=== PATIENT | male | born 1965 | race Asian ===

== ENCOUNTER 2024-08-14 15:17 | Inpatient (IN) | payer OTHER, SELFPAY ==
[2024-08-14] VITALS (8 sets, daily range): BP systolic 132–150; BP diastolic 90–99; BMI 24.8
--- NOTE | 2024-08-14 08:41 | ED.GENMED ---
History of Present Illness
General
Chief Complaint: Abdominal Pain
Source: patient
Time Seen by Provider: 08/14/24 08:31
History of Present Illness
History of Present Illness:
59-year-old male presents to the emergency room complaining of upper abdominal pain. Pain has been present since yesterday evening. He rates the pain a 10 out of 10. He describes it as a tightness or squeezing type sensation in the epigastrium.
Patient last ate at around 830 last night. He denies alcohol or drug use. He has had a previous appendectomy but no other intra-abdominal operations. He does have a history of significant gastritis for which he takes Protonix. The pain he is
experiencing today does not feel similar to his gastritis. He denies any associated diaphoresis or shortness of breath. He denies any melena or bloody stool.
Phy Exam
Physical Exam
Physical Exam:
General: Awake, Alert, Oriented X3. No acute distress.
Vitals: unremarkable
Head: Atraumatic
Eyes: Pupils equal, EOMI
Throat: Airway intact, no exudates
Neck: Trachea midline
Lungs: Clear and equal b/l
Heart: Regular rate, no murmurs
Abd: Soft, moderate tenderness palpation epigastric, No pulsatile mass
Neuro: Nonfocal
Skin: Warm, dry, no rash
Extremities: pulses equal b/l, no edema
Course
Orders/Labs/Results
Orders:
Orders
08/14/24 08:18
EKG [Electrocardiogram (*1)] Urgent
Reason for Study: Abdominal Pain
08/14/24 08:19
EKG- Treatment ONCE
08/14/24 08:41
0.9% Sodium Chloride 1000 ml [Nss] 1,000 ml IV BOLUS
Ketorolac [Toradol] 15 mg IV NOW STA
Ondansetron Injectable [Zofran] 4 mg IV NOW STA
08/14/24 08:42
US Abdomen Complete/Upper Urgent
Comment:
Reason For Exam: upper abd pain
08/14/24 08:51
Complete Blood Count/With Diff Urgent
Comprehensive Metabolic Panel Urgent
Lipase Urgent
08/14/24 10:43
CT Abd/pelvis W Iv Cont Urgent
Comment:
Reason For Exam: upper abdominal pain
08/14/24 10:47
HYDROmorphone [Dilaudid] 1 mg IV NOW STA
08/14/24 12:33
Mag Hydrox/Al Hydrox/Simeth [Maalox] 30 ml Phenobarb/Hyoscy/Atropine/Scop [] 10 ml Viscous Lidocaine 2% [Xylocaine Viscous Cup] 10 ml PO NOW
Pantoprazole [Protonix IV] 80 mg IV NOW STA
08/14/24 12:41
Mag Hydrox/Al Hydrox/Simeth [Maalox] 30 ml .ROUTE .STK-MED ONE
Phenobarb/Hyoscy/Atropine/Scop [] 10 ml .ROUTE .STK-MED ONE
Sterile Water [Sterile Water For Injection] 20 ml .ROUTE .STK-MED ONE
Viscous Lidocaine 2% [Xylocaine Viscous Cup] 15 ml .ROUTE .STK-MED ONE
08/14/24 14:26
Lactic Acid Urgent
08/14/24 14:49
Ketorolac [Toradol] 15 mg IV NOW STA
08/14/24 15:03
Admit/Transfer Patient As Directed
Co-Sign Provider:
Level of Care: Inpatient admission
Assign to:: Telemetry
Physician / Group: Otoniel Rodriguez
Diagnosis: Severe Abd Pain unclear etiology suspect bowel obstruction vs ischemia
Reason for Telemetry: Arrhythmia
Date to Stop Telemetry: 08/17/24
Time to Stop Telemetry: 11:00
Reason for Hospitalization: Severe Abd Pain unclear etiology suspect bowel obstruction vs ischemia
Expected length of stay greater than two midnights?: Yes
ELOS- Estimated Length of Stay in days: 2
I certify the patient meets the requirements for IP care: Yes
PRN Pain Medication Management As Directed
May give lesser potent ordered pain med per pt: Yes
preference::
Protocol:: Medication orders for pain may be administered in a
manner that supports deferring to patient preference
when the pt is:
- Requesting an ordered lesser potent pain medication.
Least to most potent pain medications are defined
as: acetaminophen < NSAID < tramadol < opioids
(morphine, oxycodone, hydromorphone).
- Requesting a lesser dose of the same medication IF
ORDERED.
- Requesting a less intrusive route of administration
if both routes are prescribed by the provider (PO <
IV).
08/14/24 15:05
Code Status As Directed
Resuscitation Status: Full Code
08/14/24 15:16
Consult Surgery [SURGICAL CONSULT] Routine
Consulting Provider: Bro Gray
Was physician already notified: Yes
Reason for consult: severe abd pain unclear etiology absent bowel sounds
08/14/24 16:00
Lactated Ringers [Lr] 1,000 ml IV 100 mls/hr
08/17/24 11:00
DC Protocol for Telemetry ONCE
Abnormal Lab Results
08/14/24
08:51
WBC 12.7 H 10^3/uL
(4.8-10.8)
Absolute Neuts (auto) 11.4 H 10^3/uL
(1.4-6.5)
Absolute Lymphs (auto) 0.9 L 10^3/uL
(1.2-3.4)
Neutrophils % 89.9 H %
(42.2-75.2)
Lymphocytes % 6.7 L %
(20.5-51.1)
Glucose 159 H mg/dl
(70-99)
08/14/24 08:51
08/14/24 08:51
Vital Signs
Initial and Last Documented VS:
Initial Vital Signs
Temp Pulse Resp BP Pulse Ox
98.5 F 84 20 146/95 97
08/14/24 08:17 08/14/24 08:17 08/14/24 08:17 08/14/24 08:17 08/14/24 08:17
Last Documented Vital Signs
Temp Pulse Resp BP Pulse Ox
98.5 F 100 26 149/96 94
08/14/24 08:17 08/14/24 13:00 08/14/24 13:00 08/14/24 13:00 08/14/24 13:00
MDM/Problems Addressed
Differential Diagnosis Includes:
Pancreatitis, cholecystitis, choledocholithiasis, peptic or duodenal ulcer
MDM/Problems Addressed:
Patient presents with significant epigastric pain. Ultrasound was obtained initially which does not show any clear reason for the patient's abdominal pain. Patient did not have relief with Toradol or a dose of Dilaudid. CT scan ordered which
shows perhaps some sludge in the gallbladder but no obvious area of acute inflammation. Patient treated with a GI cocktail and IV Protonix. No relief of pain. Additional dose of Dilaudid administered. Patient will be admitted for further
evaluation and treatment.
*Radiology
Radiology exam reviewed: radiology read reviewed
*Pulse Oximetry
SaO2: 97
Oxygen Mode of Delivery: Room air
Patient hypoxic: no
*EKG
Interpreted by ED Provider?: Yes
Heart Rate: 80
Rate: normal
Rhythm: sinus
[place]: normal axis
Interval: normal interval
QRS Pattern: normal QRS
Ischemia: no ischemia
*Insurance Actuary Interpretation
Rate: normal
Interpretation: normal
Rhythm: sinus
*Critical Care Note
Total Time (30-74mins, 75-104mins- exclusive of procedures): Not Applicable
ED Attending Note
-
Portions of this chart may have been created with voice recognition software.� Occasional wrong word or��sound alike� substitutions may have occurred due to the inherent limitations of voice recognition software.
Discharge Plan
Departure
Patient Disposition: Admit
Date of Disposition: 08/14/24
Time of Disposition: 13:32
Admit to: Med/Surg
Presentation/result/management discussed w/ accepting MD/DO: Hospitalist
Condition: Fair
Discharge Problem:
Acute epigastric pain
Interventions
Interventions:
*Risk Screen - Suicide Last Done: 08/14/24 08:17
*General Assessment Last Done: 08/14/24 09:03
*Neglect/Abuse Screening Last Done: 08/14/24 08:17
*ED- Fall Risk Assessment Last Done: 08/14/24 09:03
*ED COVID-19 Vaccine History Last Done: 08/14/24 09:03
LH-Sugvxj-Wgezddqkgd Assessment Last Done: 08/14/24 09:03
[2024-08-14] MEDS: NSS 1000 IV (08:52)
[2024-08-14] MEDS: ZOFRAN 4 MG IV (08:52)
[2024-08-14] MEDS: TORADOL 15 MG IV ×2 (08:53→15:56)
[2024-08-14 09:10] LABS: Hematocrit 42.3 % (39.0-52.0); Hemoglobin 14.9 g/dL (13.0-18.0); Mean Corp Hgb Conc. 35.2 g/dL (33.0-37.0); Mean Corpuscular Volume 84.1 fL (80.0-94.0); Nucleated Red Blood Cells % 0 % (-); Platelet Count 261 10^3/uL (130-400); Red Cell Dist. Width 12.6 % (11.5-14.5)
[2024-08-14 09:43] LABS: ALT (SGPT) 43 U/L (0-50); AST (SGOT) 30 U/L (17-59); Albumin 4.8 g/dl (3.5-5.0); Alkaline Phosphatase 87 U/L (38-126); Blood Urea Nitrogen 14 mg/dl (9-20); Calcium 9.3 mg/dl (8.4-10.2); Carbon Dioxide 24 mmol/L (22-30); Chloride 106 mmol/L (98-107); Glucose 159 mg/dl (70-99); Lipase 113 U/L (23-300); Potassium 4.2 mmol/L (3.5-5.1); Sodium 139 mmol/L (135-145); Total Protein 7.7 g/dl (6.3-8.2); eGFR > 60.00
[2024-08-14] MEDS: DILAUDID 1 MG IV ×2 (11:01→21:25)
[2024-08-14] MEDS: PROTONIX IV 80 MG IV (12:44)
[2024-08-14] MEDS: MAALOX 50 PO (12:44)
--- NOTE | 2024-08-14 13:33 | HPS.HSE ---
Family Physician
-
Family Physician: Jose Alfredo Vargas MD
Chief Complaint
-
Severe Abd pain
History of Present Illness
59M 1st language Syriac semi-fluent Cook Islander hx HTN GERD HLD appendectomy here with severe Abd pain started last night after dinner. 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 Last Bowel movement this morning reportedly
normal, with associate nausea vomiting non-bloody, has not passed gas since. Imaging CT US abd and labs largely unremarkable, mild leukocytosis 12.7, lactic acid pending. Abd is distended no bowel sounds present. Epigastric tenderness but no
rebound tenderness or guarding noted. Patient noted a prior incident with similar pain a month ago but the episode was self limited, lasting a few minutes only. Denies fever chills coughing sneezing constipation. Patient was in his usual state of
health prior to onset of symptoms.
Medical History
Past Medical History
Past Medical History: Reports Other (as above)
Past Surgical History: Reports Other (as above)
Social History
Tobacco: Non-smoker
Alcohol: None
Drug: None
Personal:
Living: With Family
Family History
Family History: Not pertinent (reviewed)
Allergies / Home Medications
Allergies reflects when Allergies were last updated in [facility].
Home Medications with original date entered in [facility]
Allergy/Medication List:
Allergies
Allergy/AdvReac Type Severity Reaction Status Date / Time
No Known Allergies Allergy Unverified 08/14/24 08:16
Home Medications
[id number]-[id number] 400 unit tablet (Beano) 400 unit PO DAILYPRN PRN gerd 08/14/24
amlodipine 5 mg-benazepril 10 mg capsule 1 cap PO DAILY 08/14/24
pantoprazole 40 mg tablet,delayed release 40 mg PO DAILY 08/14/24
rosuvastatin 40 mg tablet 40 mg PO QPM 08/14/24
Review of Systems
-
A 12 point ROS was completed and negative except as noted: Yes
Constitutional: Reports Other (as below)
Physical Exam
Vital Signs
Vital Signs
Temp Pulse Resp BP Pulse Ox
98.5 F 83 29 147/98 98
08/14/24 08:17 08/14/24 09:00 08/14/24 09:00 08/14/24 09:00 08/14/24 09:00
Physical Exam
General: Other (as below)
Laboratory Results
-
08/14/24 08:51
08/14/24 08:51
Laboratory Results
Total Bilirubin 0.7 mg/dl (0.2-1.3) 08/14/24 08:51
AST 30 U/L (17-59) 08/14/24 08:51
ALT 43 U/L (0-50) 08/14/24 08:51
Alkaline Phosphatase 87 U/L (38-126) 08/14/24 08:51
Lipase 113 U/L (23-300) 08/14/24 08:51
Impression/Plan
-
ROS
General: Denies fever chills night sweats unexpected weight loss
Neuro: Denies seizure shaking loss of consciousness dizziness vertigo
Psych: denies depression hallucinations confusion manic episodes
Endocrine: Denies polyuria polydipsia polyphagia heat/cold intolerance
HEENT: Denies blindness visual disturbances epistaxis
Pulmonary: denies coughing hemoptysis sneezing sob dyspnea on exertion
Cardiovascular: denies chest pain palpitations leg swelling
Hematology: denies signs symptoms of anemia easy bruising/bleeding
Gastrointestinal: reports nausea vomiting epigastric pain/tenderness
Genito-Urinary: denies retention incontinence dysuria
Musculoskeletal: denies joint pain weakness
Dermatology: denies rash laceration bruising
Physical Exam
General: No pallor, cyanosis, or jaundice.
HEENT: Throat clear. PERRLA Normocephalic atraumatic
NECK: Supple. No JVD Carotid Bruits
RESPIRATORY: Lungs clear to auscultation. No crackles wheezes stridor
CVS: S1, S2 normal. RRR. No murmur, rub or gallop.
ABDOMEN: Distended, epigastric tenderness, no rebound tenderness, absent bowel sounds
EXTREMITIES: No peripheral cyanosis or edema.
PARA PROFESSIONAL: AOx3. conversant coherent
IMPRESSION:
59M 1st language Syriac semi-fluent [place] Islander hx HTN GERD HLD appendectomy here with severe Abd pain started last night after dinner. 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 Last Bowel movement this morning reportedly
normal, with associate nausea vomiting non-bloody, has not passed gas since. Imaging CT US abd and labs largely unremarkable, neg lipase, mild leukocytosis 12.7, lactic acid pending. Abd is distended no bowel sounds present. Epigastric tenderness
but no rebound tenderness or guarding noted. Patient noted a prior incident with similar pain a month ago but the episode was self limited, lasting a few minutes only. Denies fever chills coughing sneezing constipation. Patient was in his usual
state of health prior to onset of symptoms.
PLAN:
#Severe Abd Pain unclear Etiology
#Hx Gastritis/GERD
#Hx appendectomy
Tele admit
bowel rest, NPO except meds
IVF
pain control prn Toradol moderate pain Dilaudid Severe pain
check Lactic Acid
Surgery eval requested
IV PPI BID
#HTN
cont Amlodipine ACEI w/ holding parameters
Hydralazine prn
#HLD
hold statin for now
follow up AM lipid panel
DVT ppx SCD
Full Code
I spent a total of 75 minutes with the patient or on the floor. More than 50% of this time involved counseling and coordination of care.
--- NOTE | 2024-08-14 15:04 | CM ---
Patient seen in ED with physician and microelectronics technician on phone. Patient stated that he lives with family and his physician is Dr. Vargas. Patient his home is a 2 story home and he has no DME. Patient uses [facility] [address] in [place]. Patient does not
speak much arabic and microelectronics technician was helpful to communicate. CM will continue to follow for discharge planning needs.
Plan;home with family; watch for VN needs.
[2024-08-14] MEDS: LR 1000 IV (15:56)
--- NOTE | 2024-08-14 17:08 | CON.GS ---
Consultation
-
Date/Time Consultation Performed: 08/14/2024 3:30 PM
Requesting Provider: Isaac
Reason for Consultation: Abdominal pain
Medical History
-
Chief Complaint: Epigastric abdominal pain
History of Present Illness:
Patient is a 59-year-old male with a past medical history only notable for hypertension, hypercholesterolemia and previous diagnosis of gastritis.
He was in his usual baseline state of health until approximately 24 hours ago when he began developing the acute onset of epigastric abdominal pain after dinner. He had nausea and dry heaves but no significant contents of vomiting. His pain
persisted until this a.m. prompting emergency department evaluation. He had an episode like this in the past but before it was self-limited and rather promptly resolved. This is also more severe. Bowels have been moving regularly without
constipation, diarrhea, melena or hematochezia. He continues with rather persistent epigastric pain.
Past Medical History
Past Medical History: Other (Hypertension, GERD/gastritis, hyperlipidemia)
Past Surgical History: Appendectomy
Social History
Tobacco: Non-Smoker
Alcohol: None
Living: With Family
Family History
Family History: Reviewed & Noncontributory
Allergies / Home Medications
Allergy/AdvReac Type Severity Reaction Status Date / Time
No Known Allergies Allergy Unverified 08/14/24 08:16
�Medication �Instructions �Recorded �Confirmed �Type
ivkcd-w-acoqdrxrthjbq 400 unit 400 unit PO DAILYPRN PRN gerd 08/14/24 08/14/24 History
tablet (Beano)
amlodipine 5 mg-benazepril 10 mg 1 cap PO DAILY 08/14/24 08/14/24 History
capsule
pantoprazole 40 mg tablet,delayed 40 mg PO DAILY 08/14/24 08/14/24 History
release
rosuvastatin 40 mg tablet 40 mg PO QPM 08/14/24 08/14/24 History
Review of Systems
-
History Source: Patient
All other systems: Negative unless noted
A 10 point review of systems was completed, and was negative except as per HPI.
Physical Exam
Vital Signs
Temp Pulse Resp BP Pulse Ox
100.3 F 110 36 149/96 94
08/14/24 17:02 08/14/24 16:00 08/14/24 16:00 08/14/24 13:00 08/14/24 13:00
08/13/24 08/14/24 08/15/24
06:59 06:59 06:59
Actual Weight 84.2 kg
Lab Results
08/14/24 08:51
08/14/24 08:51
WBC 12.7 10^3/uL (4.8-10.8) H 08/14/24 08:51
Hgb 14.9 g/dL (13.0-18.0) 08/14/24 08:51
Hct 42.3 % (39.0-52.0) 08/14/24 08:51
Plt Count 261 10^3/uL (130-400) 08/14/24 08:51
Abs Immat Gran (auto) 0.0 10^3/uL (0-0.05) 08/14/24 08:51
Neutrophils % 89.9 % (42.2-75.2) H 08/14/24 08:51
Physical Exam
General: Well Developed, Well Nourished and Other (Acutely ill and uncomfortable appearing. Participatory for history taking. Appears a stated age.)
HEENT: Normocephalic, Anicteric and Moist Mucous Membranes
Respiratory: Non Labored Respirations
Cardiac: Regular Rhythm (Sinus tachycardia)
GI: Soft, Non Distended, Tender (Tenderness palpation epigastrium, slight guarding on deep palpation. No rebound or rigidity. No percussion tenderness. No appreciated hernias or masses. No localizing right upper quadrant pain on tenderness.
Negative Dodd sign.) and Distended
Skin: Warm
Neuro: AO x 3
Data Reviewed
-
CT Scan: Image Personally Visualized and interpreted, Report Reviewed by me, Discussed with Physician and Discussed with Patient
Ultrasound: Image Personally Visualized and interpreted, Report Reviewed by me, Discussed with Physician and Discussed with Patient
Assessment / Plan
-
Assessment: 59-year-old male with the acute onset of severe epigastric abdominal pain of uncertain etiology; possible gastritis/duodenitis/PUD.
CT imaging is fairly unremarkable. No small bowel or colonic thickening. No free fluid. No pneumatosis, no free air. No signs of bowel obstruction. No evidence of internal hernia or closed-loop obstruction. Gallbladder is modestly distended
but this could just be from a fasting state. There is no definitive pericholecystic inflammatory changes or wall thickening. The antrum and pyloric region do appear a bit thickened within limits of CT imaging. No extraluminal air or free fluid
around the duodenal bulb/pylorus. No extraluminal air in the region as well.
Abdominal ultrasound imaging is also rather nonspecific. No gallstones. Biliary sludge. No wall thickening or pericholecystic edema. Negative sonographic Dodd's.
Labs notable for leukocytosis of 12.7 with neutrophil shift but no bandemia. Chemistry panel is unremarkable including no evidence of metabolic acidosis, lactic acid normal liver function profile testing normal as well as lipase.
Plan: Uncertain etiology to the patient's acute epigastric abdominal pain but no radiographic signs suggestive of an acute surgical abdomen (hollow visceral perforation, ischemia, infectious process, internal hernia or volvulus, etc.)
Continue with supportive care for presumptive initial diagnosis of severe gastritis/duodenitis including
N.p.o.
Aggressive IV fluid hydration
PPI twice daily IV
Analgesics and antiemetics as needed
No role for NG tube at this point as there is no significant gastric distention nor signs of bowel obstruction.
Will follow, further recommendations pending clinical course.
[2024-08-14] MEDS: NSS (PRESERVATIVE FREE) 10 ML IV (19:56)
[2024-08-14] MEDS: PROTONIX IV 40 MG IV (19:56)
[2024-08-14] MEDS: APRESOLINE 5 MG IV (20:19)
[2024-08-14] MEDS: TYLENOL 650 MG PO (20:19)
[2024-08-15] VITALS (14 sets, daily range): BP systolic 20–134; BP diastolic 77–94
[2024-08-15] MEDS: TORADOL 15 MG IV ×2 (00:14→06:21)
[2024-08-15] MEDS: LR 1000 IV ×2 (02:26→21:15)
--- NOTE | 2024-08-15 07:43 | W.PN.GS2 ---
Today's Communication / Plan
-
Reviewed plan with attending.
Assessment / Plan
-
59yoM PMH HTN, HLD here with abdominal pain of unknown etiology concerning for gastritis with a climbing WBC and thickened gastric wall on CT. No risk factors concerning for pancreatitis. Differential still includes gastritis, PUD, biliary etiology.
Plan
Supportive. PPI. No NSAIDs. IV fluids
Pain management. Tylenol. Dilaudid PRN
Consider GI consult for scope
HIDA scan to rule out biliary etiology.
Subjective Data
-
Date of Service: August 15, 2024
59yoM PMH HTN, HLD here for abdominal pain. Pt reports continued epigastric pain that is controlled with current pain regimen. Denies vomiting since yesterday morning. No BM since yesterday. Denies prior surgeries, alcohol, or NSAID use.
Objective Data
-
Intake and Output
08/14/24 08/15/24 08/16/24
06:59 06:59 06:59
Other:
Number of approximated MODERATE 2
amounts of urine
Vital Signs
Temp Pulse Resp BP Pulse Ox
98.8 F 96 18 117/78 94
08/15/24 03:35 08/15/24 03:35 08/15/24 03:35 08/15/24 03:35 08/15/24 03:35
Calcium 9.3 mg/dl (8.4-10.2) 08/14/24 08:51
Total Bilirubin 0.7 mg/dl (0.2-1.3) 08/14/24 08:51
AST 30 U/L (17-59) 08/14/24 08:51
ALT 43 U/L (0-50) 08/14/24 08:51
Alkaline Phosphatase 87 U/L (38-126) 08/14/24 08:51
Total Protein 7.7 g/dl (6.3-8.2) 08/14/24 08:51
Albumin 4.8 g/dl (3.5-5.0) 08/14/24 08:51
Physical Exam
-
General: Well Developed, Well Nourished, comfortable appearing.
HEENT: Normocephalic, Anicteric and Moist Mucous Membranes
Respiratory: Non Labored Respirations
Cardiac: Regular Rate and Rhythm
GI: Soft, Mildly Distended, Tenderness palpation epigastrium, No rebound or rigidity. No appreciated hernias or masses. No localizing right upper quadrant pain on tenderness. Negative Dodd sign
Skin: Warm
Neuro: AO x 3
Patient has a reece catheter: No
Patient has a central line: No
[2024-08-15 07:50] LABS: Hematocrit 43.2 % (39.0-52.0); Hemoglobin 14.8 g/dL (13.0-18.0); Mean Corp Hgb Conc. 34.3 g/dL (33.0-37.0); Mean Corpuscular Volume 85.4 fL (80.0-94.0); Platelet Count 233 10^3/uL (130-400); Red Cell Dist. Width 13.1 % (11.5-14.5)
[2024-08-15 08:23] LABS: Blood Urea Nitrogen 15 mg/dl (9-20); Calcium 8.5 mg/dl (8.4-10.2); Carbon Dioxide 26 mmol/L (22-30); Chloride 105 mmol/L (98-107); Estimated Creatinine Clearance 99 ml/min; Glucose 109 mg/dl (70-99); HDL Cholesterol 63 mg/dl; LDL Cholesterol, Calculated 46 mg/dl; Potassium 3.9 mmol/L (3.5-5.1); Sodium 139 mmol/L (135-145); Very Low Density Lipoprotein 12 mg/dl (0-30); eGFR > 60.00
[2024-08-15] MEDS: NSS (PRESERVATIVE FREE) 10 ML IV (08:28)
[2024-08-15] MEDS: PROTONIX IV 40 MG IV (08:28)
--- NOTE | 2024-08-15 10:05 | W.PN.HOSP.TC ---
Today's Communication/Plan
-
see a/p
Assessment / Plan
Assessment / Plan
Physical Exam
General: No pallor, cyanosis, or jaundice.
HEENT: Throat clear. PERRLA Normocephalic atraumatic
NECK: Supple. No JVD Carotid Bruits
RESPIRATORY: Lungs clear to auscultation. No crackles wheezes stridor
CVS: S1, S2 normal. RRR. No murmur, rub or gallop.
ABDOMEN: Distended, epigastric tenderness, no rebound tenderness, absent bowel sounds
EXTREMITIES: No peripheral cyanosis or edema.
DEHYDRATION PLANT OPERATOR: AOx3. conversant coherent
IMPRESSION:
59M 1st language Polish semi-fluent Malay hx HTN GERD HLD appendectomy here with severe Abd pain started last night after dinner. History obtained with [employer] line Polish spanish medical interpreter. Last Bowel movement this morning reportedly
normal, with associate nausea vomiting non-bloody, has not passed gas since. Imaging CT US abd and labs largely unremarkable, neg lipase, mild leukocytosis 12.7, lactic acid pending. Abd is distended no bowel sounds present. Epigastric tenderness
but no rebound tenderness or guarding noted. Patient noted a prior incident with similar pain a month ago but the episode was self limited, lasting a few minutes only. Denies fever chills coughing sneezing constipation. Patient was in his usual
state of health prior to onset of symptoms.
PLAN:
#Severe Abd Pain 2/2 acute cholecystitis
#Sepsis (Fever Leukocytosis) 2/2 acute cholecystitis
#Hx Gastritis/GERD
#Hx appendectomy
Tele admit
HIDA scan positive for acute cholecystitis cystic duct obstruction
Diet as per surgery
IVF
pain control prn Dilaudid
Lactic Acid consistently wnl
GI eval appreciated
Surgery eval appreciated For OR today Cholecystectomy 08/15
IV PPI daily
Zosyn
Follow blood culture
#HTN
Hold Amlodipine ACEI for now, consistent normotension, consider resuming if BP elevates
Hydralazine prn
#HLD
hold statin for now
Lipid panel appreciated wnl
DVT ppx SCD
Full Code
I spent a total of 50 minutes with the patient or on the floor. More than 50% of this time involved counseling and coordination of care.
Anticipated Discharge: 24 - 48 hours
Subjective/Interval History
-
Date of Service: August 15, 2024
Seen and examined at bedside in no acute distress sitting up comfortably in bed. Reports improvement in pain, requesting to eat. Pain continues to remain present when he moves. Noted fever overnight since resolved. No bowel movements since
admission but passing gas. Denies nausea. Family ( Shashi daughter Marylin son Awais) at bedside providing Polish translation.
Objective Data
-
Labs:
Laboratory Results
08/15/24
06:15
WBC 21.3 H
Hgb 14.8
Hct 43.2
Plt Count 233
Sodium 139
Potassium 3.9
Chloride 105
Carbon Dioxide 26
BUN 15
Creatinine 0.8
Glucose 109 H
Calcium 8.5
Vital Signs:
Vital Signs
Temp Pulse Resp BP Pulse Ox
98.8 F 94 16 120/82 94
08/15/24 07:15 08/15/24 07:15 08/15/24 07:15 08/15/24 07:15 08/15/24 07:15
--- NOTE | 2024-08-15 11:57 | CON.GI ---
Addendum entered and electronically signed by Beau Addison MD 08/15/24 13:59:
Patient seen and examined, agree with nurse practitioner note. The patient is a 59-year-old male with past medical history as noted who presents with abdominal pain and fever. He had pain in the epigastrium, without radiation, starting about an
hour after eating, which was severe, with associated fever. On admission he has significant leukocytosis and still with temperature. Ultrasound and CAT scan were mostly unremarkable though did suggest possible sludge or small stones in the
gallbladder. He had 1 other episode similar to this about 2 years ago was diagnosed with gastritis. On exam he still has significant epigastric tenderness, though no rebound. LFTs are normal, no ducts were dilated on imaging.
1. Epigastric pain: With fever and leukocytosis, with pain starting about an hour after eating, most consistent with cholecystitis despite ultrasound and CAT scan findings. Other GI etiologies seem less likely in the absence of vomiting, diarrhea
and otherwise negative CAT scan. At this point he has an HIDA scan, we will await those results. Surgery is following. Will await blood cultures and continue to trend labs.
Original Note:
Consultation
-
Date/Time Consultation Requested: 08/15/2024
Date/Time Consultation Performed: 08/15/2024
Medical History
Chief Complaint / HPI
Chief Complaint: Abdominal pain
History of Present Illness:
Patient is a 59-year-old male with past medical history of hyperlipidemia, hypertension and GERD who presented to the emergency with complaint of abdominal pain. According to the patient he was in his usual state of health yesterday till he had a
large meal yesterday, he ate it in the afternoon and by the evening he had severe abdominal pain that he rates 10/10 intensity, progressive, diffuse mainly in the upper quadrants, nonradiating without any associated nausea or vomiting. He denies
any fever, chills, diarrhea, constipation.His bowel movements are regular and his last bowel movement was yesterday morning.
He had a similar episode about 2 years ago and at that time he was diagnosed with gastritis at that time and treated in [place]. He he feels that that episode was much milder than this episode. He currently feels well but is sore in his epigastric
region and right and left upper quadrants which he believes is due to intense cramping that he was experiencing yesterday.
Past Medical History
Past Medical History: GERD, HTN and Hypercholesterolemia
Past Surgical History: Appendectomy
Social History
Tobacco: Non-Smoker
Alcohol: None
Drug: None
Living: With Family
Family History
Family History: Reviewed & Not Pertinent
Allergies / Home Medications
Allergy/AdvReac Type Severity Reaction Status Date / Time
No Known Allergies Allergy Unverified 08/14/24 08:16
�Medication �Instructions �Recorded
pvzli-p-xxjvselfhvokj 400 unit 400 unit PO DAILYPRN PRN gerd 08/14/24
tablet (Beano)
amlodipine 5 mg-benazepril 10 mg 1 cap PO DAILY 08/14/24
capsule
pantoprazole 40 mg tablet,delayed 40 mg PO DAILY 08/14/24
release
rosuvastatin 40 mg tablet 40 mg PO QPM 08/14/24
Review of Systems
-
All other systems: A 12 pt ROS was Negative except as stated above in HPI
Vital Signs
Temp Pulse Resp BP Pulse Ox
99.2 F 104 18 129/88 92
08/15/24 11:15 08/15/24 11:15 08/15/24 11:15 08/15/24 11:15 08/15/24 11:15
Physical Exam
Exam
General: Well Developed and No Apparent Distress
HEENT: Normocephalic, Anicteric and Moist Mucous Membranes
Respiratory: Clear; Negative Wheezes, Rales or Rhonchi
Cardiac: S1/S2 and Regular Rhythm
GI: Soft, Normal Bowel Sounds and Tender (in epigastric region)
Musculoskeletal: No Clubbing, No Cyanosis and No Edema
Neuro: Awake and Nonfocal/Grossly Intact
Hematologic/Lymphatic: No Lymphadenopathy
Psych: Calm
Results
WBC 21.3 10^3/uL (4.8-10.8) H 08/15/24 06:15
Hgb 14.8 g/dL (13.0-18.0) 08/15/24 06:15
Hct 43.2 % (39.0-52.0) 08/15/24 06:15
MCV 85.4 fL (80.0-94.0) 08/15/24 06:15
Plt Count 233 10^3/uL (130-400) 08/15/24 06:15
Absolute Neuts (auto) 11.4 10^3/uL (1.4-6.5) H 08/14/24 08:51
Sodium 139 mmol/L (135-145) 08/15/24 06:15
Potassium 3.9 mmol/L (3.5-5.1) 08/15/24 06:15
Chloride 105 mmol/L (98-107) 08/15/24 06:15
Carbon Dioxide 26 mmol/L (22-30) 08/15/24 06:15
BUN 15 mg/dl (9-20) 08/15/24 06:15
Creatinine 0.8 mg/dL (0.7-1.3) 08/15/24 06:15
Calcium 8.5 mg/dl (8.4-10.2) 08/15/24 06:15
Total Bilirubin 0.7 mg/dl (0.2-1.3) 08/14/24 08:51
AST 30 U/L (17-59) 08/14/24 08:51
ALT 43 U/L (0-50) 08/14/24 08:51
Alkaline Phosphatase 87 U/L (38-126) 08/14/24 08:51
Lipase 113 U/L (23-300) 08/14/24 08:51
Diagnostic Image Results:
Abdominal ultrasound 08/14/24
IMPRESSION:
Fatty infiltration of liver.
No gallstones or bile duct dilatation.
Ct A/p 08/14/24
IMPRESSION:
No acute inflammatory process within the abdomen or pelvis.
Minor diverticulosis. No evidence of acute diverticulitis. No bowel obstruction.
No obstructive uropathy.
Assessment / Plan
-
Impression
59-year-old male, admitted with acute severe abdominal pain associated with nausea vomiting, fever, unclear etiology, possible gastritis/duodenitis. Abdominal imaging unremarkable. GI consulted for recommendations
Assessment/plan
Leukocytosis
Reports fever, with a Tmax of 101.5 yesterday evening
EKG shows no acute ischemic changes
Mild fatty liver, minor diverticulosis
Abdominal ultrasound :Gallbladder: No gallstones identified. Mild biliary sludge noted. No gallbladder wall thickening or pericholecystic fluid. Negative sonographic Dodd sign.
Common bile duct: Normal, [address]-Gallbladder: Normally distended. No gallbladder wall thickening or pericholecystic fluid. Near the gallbladder neck, small density measuring approximately 5 mm (image 31 series 201), though not reproduced on delayed imaging. Uncertain
etiology. Possibly mobile small calculus or sludge..
Tachycardia
History of GERD, gastritis-on PPIs at home
As per the daughter, had colonoscopy/endoscopy by Brandon shrestha-Caleb?
Plan
Based on my assessment, acute cholecystitis most appropriate
No clear evidence of gallstones on ultrasound/CT of abdomen
Possibility of sludge/gallstones on CT
HIDA scan
N.p.o.
Continue IV fluids
Continue PPIs
Continue blood pressure medications as needed
Given leukocytosis, consider starting Zosyn
Continue to trend H&H
Serial abdominal exams
Manage symptomatically
DVT prophylaxis-SCDs
CODE STATUS-full code
-
-
Thank you for consultation and allowing me to participate in the patient's care. Please call the housing relocation GI physician during the after hours with any questions or concerns.
--- NOTE | 2024-08-15 14:37 | PTCARENOTE ---
1420Ask to give morphine to this patient in nuclear med. Patient identified, denies allergy. VS 141/92 P109 R 18 Pox 91%RA pre. Mso4 2mg given IV at 1429. Denies complaint. VS rechecked at 1435 140/94 P110 R 14 Pox 90% RA. Left in care of nuc
med staff
[2024-08-15 15:08] LABS: ALT (SGPT) 43 U/L (0-50); AST (SGOT) 35 U/L (17-59); Albumin 4.1 g/dl (3.5-5.0); Alkaline Phosphatase 96 U/L (38-126); Total Protein 6.5 g/dl (6.3-8.2)
--- NOTE | 2024-08-15 15:32 | W.PN.SURGUPD ---
Surgical Update
Surgical Update
S: Pt with epigastric tenderness into the RUQ, fevers yesterday evening up to 101.5, tachycardia with associated leukocytosis. Mild elevation in bilirubin with normal direct bilirubin.
B: US/CT negative for cholecystitis on admission although cholelithiasis present
A: Additional imaging obtained today with HIDA scan. Positive findings for cystic duct obstruction (acute cholecystitis), cbd patent
R: Start IV zosyn, NPO for OR today for laparoscopic cholecystectomy.
Reviewed imaging findings and surgical plan utilizing the [employer] Turkmen Language [employer] head start director; Rebecca NUÑEZ. Patient agreeable to proceed with surgery.
Attempted to call patient's and son but phones went immediately to
[2024-08-15] MEDS: ZOSYN 50 IV ×2 (15:35→21:16)
--- NOTE | 2024-08-15 15:38 | W.PN.UPDATE ---
Update Note
Progress Note Update
HIDA scan noted, nonvisualization of the gallbladder, consistent with cholecystitis. I discussed with surgery, going to the OR this afternoon. We will sign off for now, please call back with any further questions.
--- NOTE | 2024-08-15 16:36 | W.PN.SURGUPD ---
Surgical Update
Surgical Update
Patient seen in follow-up independently of resident as well as surgical nurse practitioner.
Persistent epigastric pain. Nausea and anorexia.
Febrile today.
Tenderness remains in the epigastrium just to the right of midline.
Clinical suspicion for cholecystitis prompted HIDA scan imaging today which confirms nonvisualization of gallbladder and in this setting is highly suggestive of acute cholecystitis.
Given ongoing symptoms recommended surgical intervention with cholecystectomy for definitive management. I discussed with the patient's and children in the preoperative waiting area and reviewed with patient Mr. Adams in the preoperative holding
area. All were in agreement to proceed with cholecystectomy.
Laparoscopic cholecystectomy with possible cholangiogram was reviewed in detail including the operative technique, alternative treatment options, benefits and potential risks of surgery such as but not limited to bleeding, infectious and wound
related complications, and iatrogenic injury to surrounding structures. We discussed the typical postoperative recovery pending operative findings. Any of the patient's concerns or questions were confirmed to be fully addressed and written
informed consent was obtained.
--- NOTE | 2024-08-15 16:38 | PTCARENOTE ---
Received patient this am AAOx3. Pt NPO with IVF infusing. Pt off unit today for a Hida Scan. Pt given Zosyn as ordered. Pt sent to OR at 1615. Cont to assess pt status.
--- NOTE | 2024-08-15 16:43 | W.SUR.PREOP ---
Pre-Operative Surgical Note
-
I have examined this patient prior to the performance of the scheduled procedure.
The patient's condition is unchanged from the time of the current History and
Physical and the patient is able to undergo the scheduled procedure.
--- NOTE | 2024-08-15 19:09 | W.IMMPOSTOP ---
Addendum entered and electronically signed by Bro Gray MD 08/15/24 19:33:
#[id number]
Original Note:
Surgical Immed Post Op Note
-
Primary Surgeon: Bro Gray MD
Assisting Surgeon: Zhang CASTANEDA
Pre-op Diagnosis: Acute cholecystitis
Post-op Diagnosis: Gangrenous acute cholecystitis
Procedure Performed: Laparoscopic cholecystectomy
Anesthesia Type: GETA +0.25% Marcaine
Specimen / Cultures: Gallbladder
Estimated Blood Loss: 56 mL
Complications: None immediate
Operative Findings: Tensely distended and enlarged gallbladder with wall thickening and patchy gangrenous changes throughout. No gross perforation. Adjacent omental adhesions to gallbladder and liver capsule. Cystic artery identified and
controlled with clips. Cystic duct identified through critical view of safety. Cholangiogram attempted however despite numerous attempts catheter was unable to be secured with short cystic duct to perform cholangiography. Cystic duct stump
controlled with 0 PDS Endoloop. Gallbladder extracted at epigastric port site.
Plan: Assuming negative blood cultures will treat for 5 days of empiric antibiotics. (Zosyn to Augmentin when ready for discharge)
Clear liquid diet initially postop as patient with signs of ileus preoperatively due to severity of cholecystitis; follow for signs of GI recovery prior to dietary advancement.
ASHLEY drain but would anticipate removal prior to discharge if remains nonbilious
Updated patient's family in the surgical waiting area postoperatively.
[2024-08-15] MEDS: LR IV ×2 (19:37)
[2024-08-16] MEDS: DILAUDID 0.5 MG IV (01:30)
[2024-08-16 03:12] VITALS: BP 123/84
[2024-08-16] MEDS: ZOSYN 50 IV ×4 (04:53→21:57)
[2024-08-16] MEDS: LR 1000 IV ×3 (06:05→20:47)
[2024-08-16] MEDS: DILAUDID 1 MG IV ×2 (06:05→11:18)
[2024-08-16 06:58] LABS: Hematocrit 39.7 % (39.0-52.0); Hemoglobin 13.3 g/dL (13.0-18.0); Mean Corp Hgb Conc. 33.5 g/dL (33.0-37.0); Mean Corpuscular Volume 85.6 fL (80.0-94.0); Platelet Count 190 10^3/uL (130-400); Red Cell Dist. Width 13.0 % (11.5-14.5)
[2024-08-16 07:24] LABS: ALT (SGPT) 121 U/L (0-50); AST (SGOT) 86 U/L (17-59); Albumin 3.3 g/dl (3.5-5.0); Alkaline Phosphatase 92 U/L (38-126); Blood Urea Nitrogen 14 mg/dl (9-20); Calcium 8.1 mg/dl (8.4-10.2); Carbon Dioxide 24 mmol/L (22-30); Chloride 105 mmol/L (98-107); Estimated Creatinine Clearance 113 ml/min; Glucose 149 mg/dl (70-99); Magnesium 2.3 mg/dl (1.6-2.3); Potassium 3.9 mmol/L (3.5-5.1); Sodium 138 mmol/L (135-145); Total Protein 5.7 g/dl (6.3-8.2); eGFR > 60.00
[2024-08-16 08:14] VITALS: BP 125/84
[2024-08-16] MEDS: PROTONIX IV 40 MG IV (08:17)
[2024-08-16] MEDS: NSS (PRESERVATIVE FREE) 10 ML IV (08:17)
[2024-08-16] MEDS: POTASSIUM PHOSPHATE 259.0909 MEQ IV (08:17)
--- NOTE | 2024-08-16 08:27 | W.PN.HOSP.TC ---
Today's Communication/Plan
-
Resume home Antihypertensives w/ holding parameters
Ok to dc site monitor
IVF gentle hydration, ok to dc if tolerating diet
cont abx
Patient's primary problem surgical, acute gangrenous cholecystitis required cholecystectomy, overall improving since procedure. Discussed with surgery, transferring patient to general surgery service. Hospitalist service will sign off. Please
re-consult as necessary.
Assessment / Plan
Assessment / Plan
Physical Exam
General: No pallor, cyanosis, or jaundice.
HEENT: Throat clear. PERRLA Normocephalic atraumatic
NECK: Supple. No JVD Carotid Bruits
RESPIRATORY: Lungs clear to auscultation. No crackles wheezes stridor
CVS: S1, S2 normal. RRR. No murmur, rub or gallop.
ABDOMEN: Distended, epigastric tenderness, no rebound tenderness, decreased bowel sounds, ASHLEY drain, Laparoscopic surgical wounds clean dry
EXTREMITIES: No peripheral cyanosis or edema.
EDISCOVERY PROJECT MANAGER: AOx3. conversant coherent
IMPRESSION:
59M 1st language Pashto semi-fluent French hx HTN GERD HLD appendectomy here with severe Abd pain started last night after dinner. History obtained with [email or web address] line Pashto relations coordinator. Last Bowel movement this morning reportedly
normal, with associate nausea vomiting non-bloody, has not passed gas since. Imaging CT US abd and labs largely unremarkable, neg lipase, mild leukocytosis 12.7, lactic acid pending. Abd is distended no bowel sounds present. Epigastric tenderness
but no rebound tenderness or guarding noted. Patient noted a prior incident with similar pain a month ago but the episode was self limited, lasting a few minutes only. Denies fever chills coughing sneezing constipation. Patient was in his usual
state of health prior to onset of symptoms.
PLAN:
#Severe Abd Pain 2/2 Gangrenous acute cholecystitis
#Sepsis (Fever Leukocytosis) 2/2 acute cholecystitis
#Hx Gastritis/GERD
#Hx appendectomy
Tele admit, since clinically improved, ok to dc site monitor.
HIDA scan positive for acute cholecystitis cystic duct obstruction
pain control prn Dilaudid
Lactic Acid consistently wnl
GI eval appreciated
Surgery eval appreciated s/p Cholecystectomy 08/15
Diet as per surgery
IVF gentle hydration, ok to dc if tolerating diet
IV PPI daily
agree abx as per surgery, cont Zosyn
WBC trending down, Fevers resolved
Follow blood culture NGTD
#Hypophosphatemia
agree repletion as per surgery
#HTN
Amlodipine ACEI resumed with holding parameters
#HLD
hold statin for now
Lipid panel appreciated wnl
DVT ppx SCD
Full Code
Patient's primary problem surgical, acute gangrenous cholecystitis required cholecystectomy, overall improving since procedure. Discussed with surgery, transferring patient to general surgery service. Hospitalist service will sign off. Please
re-consult as necessary.
Discussed with patient via [employer] Career Development Engineer Pashto
I spent a total of 45 minutes with the patient or on the floor. More than 50% of this time involved counseling and coordination of care.
Anticipated Discharge: 24 - 48 hours
Subjective/Interval History
-
Date of Service: August 16, 2024
Seen and examined at bedside in no acute distress resting comfortably in bed. Reports overall feeling well, Pain well controlled with current pain regimen, endorses significant improvement since cholecystectomy. Denies bowel movement or flatus.
Denies nausea. Discussed with patient via [employer] Line Career Development Engineer Pashto
Objective Data
-
Labs:
Laboratory Results
08/16/24
06:29
WBC 17.1 H
Hgb 13.3
Hct 39.7
Plt Count 190
Sodium 138
Potassium 3.9
Chloride 105
Carbon Dioxide 24
BUN 14
Creatinine 0.7
Glucose 149 H
Calcium 8.1 L
Total Bilirubin 1.3
AST 86 H
ALT 121 H
Alkaline Phosphatase 92
Vital Signs:
Vital Signs
Temp Pulse Resp BP Pulse Ox
97.5 F 72 18 125/84 97
08/16/24 08:14 08/16/24 08:14 08/16/24 08:14 08/16/24 08:14 08/16/24 08:14
I&O
08/15/24 08/16/24 08/17/24
06:59 06:59 06:59
Intake Total 410 / 410
Output Total 65 / 65
Balance 345 / 345
[2024-08-16 11:53] VITALS: BP 160/83
[2024-08-16] MEDS: NORVASC 5 MG PO (12:20)
--- NOTE | 2024-08-16 12:20 | W.PN.GS2 ---
Today's Communication / Plan
-
FLD
Continue ABX
Assessment / Plan
-
59 yo male presenting with upper abdominal pain, work up revealed sepsis secondary to cholecystitis, sepsis now resolved
POD #1 lap rosalio with gangrenous cholecystitis noted intraop
Afebrile since surgery, tachycardia resolved
WBC trending down from 21 to 17.1
ASHLEY left in place given the degree of infection, anticipate removal prior to discharge
High risk for ileus, thus far tolerating clears
Plan:
Full liquids as tolerated
C/W ASHLEY, follow outputs
C/W ABX, anticipate a 5 day course post op, will transition to Po prior to d/c
Ok to transfer to surgical service
Ok to d/c telemetry
IVF until good PO intake
Analgesics/antiemetics prn
VTE ppx with lovenox and scds
Subjective Data
-
Date of Service: August 16, 2024
Pt seen and examined at bedside with Dr. Martinez. Denies n/v. Pain improving since preop but still sore.
Objective Data
-
Intake and Output
08/15/24 08/16/24 08/17/24
06:59 06:59 06:59
Intake Total 410 / 410
Output Total 65 / 65
Balance 345 / 345
Intake:
Oral fluids 360 / 360
IV piggybacks 50 / 50
Output:
Drain Output (Total) 65 / 65
Right Lower Abdomen Tomy- 65 / 65
Mariscal
Other:
Number of approximated MODERATE 2 2 1
amounts of urine
Vital Signs
Temp Pulse Resp BP Pulse Ox
98.3 F 77 18 160/83 97
08/16/24 11:53 08/16/24 11:53 08/16/24 11:53 08/16/24 11:53 08/16/24 11:53
Lab Results
08/16/24 06:29
08/16/24 06:29
Calcium 8.1 mg/dl (8.4-10.2) L 08/16/24 06:29
Phosphorus 1.9 mg/dl (2.5-4.5) L 08/16/24 06:29
Magnesium 2.3 mg/dl (1.6-2.3) 08/16/24 06:29
Total Bilirubin 1.3 mg/dl (0.2-1.3) 08/16/24 06:
Direct Bilirubin 0.4 mg/dl (0.0-0.4) 08/15/24 06:15
AST 86 U/L (17-59) H 08/16/24 06:29
ALT 121 U/L (0-50) H 08/16/24 06:29
Alkaline Phosphatase 92 U/L (38-126) 08/16/24 06:29
Total Protein 5.7 g/dl (6.3-8.2) L 08/16/24 06:29
Albumin 3.3 g/dl (3.5-5.0) L 08/16/24 06:29
Physical Exam
-
NAD
ABD soft, mild distention, incisional tenderness
ASHLEY with SSF
Incisions well approximated, intact glue
[2024-08-16 14:27] VITALS: BP 160/83
[2024-08-16 23:21] VITALS: BP 133/89
[2024-08-17] MEDS: ZOSYN 50 IV ×2 (03:43→13:36)
[2024-08-17 07:05] VITALS: BP 133/89
[2024-08-17 07:06] LABS: Hematocrit 38.7 % (39.0-52.0); Hemoglobin 13.4 g/dL (13.0-18.0); Mean Corp Hgb Conc. 34.6 g/dL (33.0-37.0); Mean Corpuscular Volume 84.5 fL (80.0-94.0); Platelet Count 218 10^3/uL (130-400); Red Cell Dist. Width 12.9 % (11.5-14.5)
[2024-08-17 07:28] LABS: ALT (SGPT) 106 U/L (0-50); AST (SGOT) 48 U/L (17-59); Albumin 3.3 g/dl (3.5-5.0); Alkaline Phosphatase 85 U/L (38-126); Blood Urea Nitrogen 14 mg/dl (9-20); Calcium 8.2 mg/dl (8.4-10.2); Carbon Dioxide 26 mmol/L (22-30); Chloride 106 mmol/L (98-107); Estimated Creatinine Clearance 88 ml/min; Glucose 97 mg/dl (70-99); Magnesium 2.4 mg/dl (1.6-2.3); Potassium 3.5 mmol/L (3.5-5.1); Sodium 138 mmol/L (135-145); Total Protein 5.8 g/dl (6.3-8.2); eGFR > 60.00
[2024-08-17] MEDS: NORVASC 5 MG PO (08:42)
[2024-08-17] MEDS: ZESTRIL 10 MG PO (08:42)
[2024-08-17] MEDS: POTASSIUM PHOSPHATE 259.0909 MEQ IV (08:43)
[2024-08-17] MEDS: PROTONIX IV 40 MG IV (08:43)
[2024-08-17] MEDS: NSS (PRESERVATIVE FREE) 10 ML IV (08:43)
--- NOTE | 2024-08-17 10:13 | W.PN.GS2 ---
Today's Communication / Plan
-
dispo planning
Assessment / Plan
-
59 yo male presenting with upper abdominal pain, work up revealed sepsis secondary to cholecystitis, sepsis now resolved
POD #2 lap rosalio with gangrenous cholecystitis noted intraop
AFVSS
WBC continues trending down
ASHLEY with minimal SSF, removed
High risk for ileus, thus far tolerating clears
Hypophosphatemia d/t volume shifts
Plan:
Low fat diet
[employer] rider
C/W ABX, anticipate a 5 day course post op, will transition to PO prior to d/c
d/c IVF
Analgesics/antiemetics prn
ambulate/oob
VTE ppx with lovenox and scds
Anticipate d/c later today if tolerating diet
Subjective Data
-
Date of Service: August 17, 2024
Pt seen and examined at bedside with Dr. Martinez. Denies n/v. Tolerating dietary advancements. Passing flatus. Pain improved today but still present.
Objective Data
-
Intake and Output
08/16/24 08/17/24 08/18/24
06:59 06:59 06:59
Intake Total 410 / 410 3743 / 3743
Output Total 50
Balance 345 / 345 3693 / 3693
Intake:
Oral fluids 360 / 360 1440 / 1440
IV fluids (Total) 185 / 1853
IV piggybacks 450 / 450
Output:
Drain Output (Total) 50 / 50
Right Lower Abdomen Tomy-
Mariscal
Other:
Number of approximated MODERATE 2 1
amounts of urine
Vital Signs
Temp Pulse Resp BP Pulse Ox
98.3 F 78 16 133/89 97
08/17/24 07:05 08/17/24 07:05 08/17/24 07:05 08/17/24 07:05 08/17/24 07:05
Lab Results
08/17/24 06:19
08/17/24 06:19
Calcium 8.2 mg/dl (8.4-10.2) L 08/17/24 06:19
Phosphorus 2.3 mg/dl (2.5-4.5) L 08/17/24 06:19
Magnesium 2.4 mg/dl (1.6-2.3) H 08/17/24 06:19
Total Bilirubin 1.0 mg/dl (0.2-1.3) 08/17/24 06:19
Direct Bilirubin 0.4 mg/dl (0.0-0.4) 08/15/24 06:15
AST 48 U/L (17-59) 08/17/24 06:19
ALT 106 U/L (0-50) H 08/17/24 06:19
Alkaline Phosphatase 85 U/L (38-126) 08/17/24 06:19
Total Protein 5.8 g/dl (6.3-8.2) L 08/17/24 06:19
Albumin 3.3 g/dl (3.5-5.0) L 08/17/24 06:19
Physical Exam
-
NAD
ABD soft, ND, mild incisional tenderness
ASHLEY with SSF (minimal)
Incisions well approximated, intact glue
--- NOTE | 2024-08-17 12:57 | W.DS.TRANS ---
Addendum entered and electronically signed by CHERRI Flores 08/17/24 13:29:
dictated #[id number]
Original Note:
DC Summary - Control Officer
-
Discharge Instructions:
Discharge Diagnosis/Procedures Acute cholecystitis status post cholecystectomy
Diet As tolerated,Low Fat
Additional Diets If you have loose stools after surgery, avoid
oily or greasy foods as well as high fat dairy
Activity No strenuous activity
Additional Activity Avoid heavy exercise and do not lift over 20lbs
for the next 3-4 weeks
Bathing Restrictions OK to Shower
Wound Care Allow the glue to flake off your incisions on
its own over the next 2-3 weeks. Cover the site
where your drain was with a clean gauze dressing
and change daily until drainage no longer
present, then ok to leave open to the air.
Instructions:
Stand-Alone Forms:
Changes to Home Medications: No
Discharge Medications:
DC Medications w/original date entered in [facility]
hnfuj-n-ysjgiwjjgyhgh 400 unit tablet (Beano) 400 unit PO DAILYPRN PRN gerd 08/14/24
amlodipine 5 mg-benazepril 10 mg capsule 1 cap PO DAILY 08/14/24
pantoprazole 40 mg tablet,delayed release 40 mg PO DAILY 08/14/24
rosuvastatin 40 mg tablet 40 mg PO QPM 08/14/24
acetaminophen 325 mg tablet 650 mg (2 x 325 mg) PO Q4HPRN PRN mild pain #1 tab 08/17/24
amoxicillin 875 mg-potassium clavulanate 125 mg tablet 1 tab PO Q12 antibiotic #8 tabs 08/17/24
ibuprofen 200 mg tablet 400 - 600 mg (2 - 3 x 200 mg) PO Q6HPRN PRN moderate pain #1 tab 08/17/24
oxycodone 5 mg tablet 5 mg PO Q4HPRN PRN breakthrough/severe pain #10 tabs 08/17/24
Home Medication Changes
Pending Results: No
[2024-08-17 15:08] VITALS: BP 136/96
--- NOTE | 2024-08-17 16:11 | CM ---
Faroese speaking patient with Dx acute gangrenous cholecystitis s/p lap rosalio. Room air. Drain out today. Per nurse; A/O, activity by self.
Spoke with patient's son Awais; he agrees with discharge today. and son will provide transport home.
Plan home today.
== END 2024-08-17 15:48 | disposition home or self-care (01) | DRG 854 ==
LOC: 4 EAST ACU 15:17
PROVIDERS: ADMITTING PHYSICIAN Internal Medicine; ATTENDING PHYSICIAN Surgery; CONSULT PHYSICIAN Internal Medicine Gastroenterology; EMERGENCY PHYSICIAN Emergency Medicine; FAMILY PHYSICIAN Internal Medicine
PROC: 0FT44ZZ Resection of Gallbladder, Percutaneous Endoscopic Approach (ICD-10-PCS; 2024-08-15)
DX: A41.9 Sepsis, unspecified organism (principal); K81.0 Acute cholecystitis; I10 Essential (primary) hypertension; E83.39 Other disorders of phosphorus metabolism
CPT/HCPCS: 74177; 76000; 76700; 78226; 80053; 80061; 82248; 83605; 83690; 83735; 84100; 85025; 85027; 87040; 88304; 93005; 96361; 96374; 96375; 99285; A4300; A9537; Q9967